=== PATIENT | female | born 1980 | race American Indian/Alaskan Native ===

== ENCOUNTER 2017-10-22 06:06 | Day surgery (SDC) | payer BC ==
--- NOTE | 2017-10-21 22:30 | History and Physical Report ---
History of Present Illness Date of examination: 10/22/17 Chief complaint: Blighted Ovum History of present illness: Pt is a 37 year old female LMP 07/14/17 at 14w2d by LMP presents with ultrasound on 10/16/17 with gesational sac measuring 6w4d with no pole or yolk sac. She desires surgical management. Past History Past Medical History: hematologic disorders (sickle cell trait ) Past Surgical History: section (x 2) [employer] History: herpes Family/Genetic History: hypertension Social history: no significant social history - Obstetrical History : 3 Para: 2 Hx # Term Pregnancies: 2 Number of Pregnancies: 0 Spontaneous Abortions: 0 Induced : 0 Number of Living Children: 2 Medications and Allergies Allergies Allergy/AdvReac Type Severity Reaction Status Date / Time No Known Allergies Allergy Unverified 10/21/17 10:42 Home Medications Medication Instructions Recorded Confirmed Last Taken Type Pnv No.95/Ferrous Fum/Folic AC 1 tab PO DAILY 10/21/17 10/21/17 Unknown History [ Vitamins Tablet] Review of Systems All systems: negative - Physical Exam Breasts: Positive: deferred Cardiovascular: Regular rate Lungs: Positive: Clear to auscultation Abdomen: Positive: soft Extremities: Positive: normal Results All other labs normal. Assessment and Plan A: Blighted ovum P: Proceed with suction dilation ad curettage and other indicated procedures.
[~2017-10-22 06:06] MED LIST: DOXYCYCLINE HYCLATE 100 MG in NACL 0.9% 250ML 250 ML IV SCH; LACTATED RINGERS 1,000 ML IV SCH
[2017-10-22] MEDS ORDERED: NACL BACTERIOSTATIC INFILTRATI ONE (06:31)
--- NOTE | 2017-10-22 06:57 | Anesthesia Consultation ---
Anesthesia Consult and Med Hx Date of service: 10/22/17 - Airway Anesthetic Teeth Evaluation: Good ROM Head & Neck: Adequate Mental/Hyoid Distance: Adequate Mallampati Class: Class II Intubation Access Assessment: Probably Good - Pulmonary Exam CTA: Yes - Cardiac Exam Cardiac Exam: RRR - Pre-Operative Health Status ASA Pre-Surgery Classification: ASA2 Proposed Anesthetic Plan: General - Central Nervous System Hx Psychiatric Problems: No - Hematic Hx Sickle Cell Disease: Yes (Trait only) - Other Systems Hx Cancer: No
--- NOTE | 2017-10-22 06:58 | Anesthesia Day of Surgery ---
Anesthesia Day of Surgery - Day of Surgery Patient Examined: Yes Patient H&P Reviewed: Yes Patient is NPO: Yes
[2017-10-22] MEDS ORDERED: PEPCID PO NR (07:00)
[2017-10-22] MEDS ORDERED: VERSED IV NR (07:00)
[2017-10-22] MEDS ORDERED: DIPRIVAN 10 MG/ML IV ONE (07:03)
[2017-10-22] MEDS ORDERED: DECADRON ONE (07:04)
[2017-10-22] MEDS ORDERED: XYLOCAINE MPF 2% ONE (07:04)
[2017-10-22] MEDS ORDERED: ZOFRAN ONE (07:04)
[2017-10-22] MEDS ORDERED: DILAUDID ONE (07:04)
[2017-10-22] MEDS ORDERED: METHERGINE IM ONE (07:21)
[2017-10-22] MEDS ORDERED: SILVER NITRATE TP ONE (07:21)
[2017-10-22] MEDS ORDERED: TORADOL IV PRN (07:30)
[2017-10-22] MEDS ORDERED: DILAUDID IV PRN (07:30)
[2017-10-22] MEDS ORDERED: ZOFRAN IV PRN (07:30)
[2017-10-22 07:47] LABS: Hematocrit 38.8 % (30.3-42.9); Hemoglobin 13.1 gm/dl (10.1-14.3); Mean Corpuscular HGB Conc 34 % (30-34); Mean Corpuscular Hemoglobin 33 pg (28-32); Mean Corpuscular Volume 96 fl (79-97); Platelet Count 176 K/mm3 (140-440); Red Blood Count 4.03 M/mm3 (3.65-5.03); Red Cell Distribution Width 12.8 % (13.2-15.2)
--- NOTE | 2017-10-22 08:45 | Operative Report ---
Operative Report Operative Report: Date of procedure: October 22, 2017 Preoperative diagnosis: Blighted ovum Postoperative diagnosis: Same Procedure: Suction dilation and curettage Surgeon: Nicky Hampton M.D. Findings: 1) Small anteverted uterus which sounded to 7 cm Anesthesia: General anesthesia with LMA EBL: 200 mL IV fluid: 300 mL Urine output: 80 mL, clear prior to the procedure Drains: None Specimens: Products of conception to pathology Complications: None Medications: Methergine 0.2 mg IM Disposition: Stable to PACU Indication for procedure: Pt is a 37 year old female who presents for surgical management of blighted ovum (6w4d). Operation detail: After the risks, benefits, alternatives, and complications of the procedure were explained to the patient she gave informed consent for the procedure. She was taken to the operating room with her IV noted to be running well and placed in the dorsal supine position. SCDs were noted to be in place and functioning. General anesthesia was induced without difficulty. The patient was placed in the dorsal lithotomy position and prepped and draped in normal sterile fashion. A timeout was performed. The bladder was drained of 80 mL of clear urine with a catheter. A bivalve speculum was placed in the vagina for adequate visualization of the cervix. A single-tooth tenaculum was some anterior lip of the cervix. The uterus was then gently sounded to 7 cm. Carreno dilators were used to dilate the cervix to # 21 dilator, sufficient to accommodate a #7 rigid curet. A suction curettage was then performed with a #7 curette. Sharp curettage was performed until gritty x 4. Methergine 0.2 mg IM was administered. The tenaculum was removed from the cervix and the puncture sites were noted to be hemostatic. At this time all instruments removed from the vagina and the procedure was ended. The patient was replaced into the dorsal supine position and extubated without difficulty. She was subsequently taken to the PACU in stable condition. The patient tolerated the procedure well and all instrument and lap counts were correct 2.
--- NOTE | 2017-10-22 09:01 | Short Stay Summary ---
Short Stay Documentation Date of service: 10/22/17 - History H&P: dictated Social history: no significant social history - Allergies and Medications Current Medications: Allergies No Known Allergies Allergy (Verified 10/21/17 22:26) Home Medications Medication Instructions Recorded Confirmed Last Taken Type Pnv No.95/Ferrous Fum/Folic AC 1 tab PO DAILY 10/21/17 10/22/17 1 Week Ago History [ Vitamins Tablet] ~10/15/17 Ibuprofen [Motrin] 800 mg PO Q8HR PRN #30 tablet 10/22/17 Unknown Rx Active Medications Hydromorphone HCl (Dilaudid) 0.5 mg IV Q10MIN PRN PRN Reason: Pain , Severe (7-10) Stop: 10/22/17 15:00 Doxycycline Hyclate 100 mg/ (Sodium Chloride) 250 mls @ 250 mls/hr IV PREOP COMFORT ; Protocol Stop: 10/22/17 23:59 Lactated Ringer's (Lactated Ringers) 1,000 mls @ 100 mls/hr IV DIRECT COMFORT Last Admin: 10/22/17 07:10 Dose: 100 mls/hr Ketorolac Tromethamine (Toradol) 30 mg IV ONCE PRN PRN Reason: Pain, Moderate (4-6) Stop: 10/22/17 15:30 Midazolam HCl (Versed) 2 mg IV PREOP NR Stop: 10/22/17 23:59 Last Admin: 10/22/17 07:27 Dose: 2 mg Ondansetron HCl (Zofran) 4 mg IV ONCE PRN PRN Reason: Nausea And Vomiting Stop: 10/22/17 15:00 - Physical exam Breasts: deferred - Brief post op/procedure progress note Date of procedure: 10/22/17 Pre-op diagnosis: Blighted Ovum Post-op diagnosis: same Procedure: Suction dilation and curettage Anesthesia: GETA Findings: 1) Small anteverted uterus which sounded to 7 cm Surgeon: SILVER EUGENE Estimated blood loss: other (200 mL) Pathology: list (products of conception) Specimen disposition: to lab Condition: stable - Hospital course Hospital course: Patient underwent suction dilation and curettage was tolerated well. She was observed in the PACU and she met discharge criteria. She'll follow-up in the office in [address] Worrell. - Disposition Condition at discharge: Stable Disposition: DC-01 TO HOME OR SELFCARE - Discharge Diagnoses (1) Blighted ovum Status: Acute Short Stay Discharge Plan Activity: other (Nothing in vagina, no tub baths for 4 weeks ) Weight Bearing Status: Full Weight Bearing Diet: regular Follow up with: SILVER EUGENE MD [Staff Physician] - 11/05/17 (please schedule post op visit ) Prescriptions: Doxycycline Hyclate [Doxycycline Hyclate TAB] 100 mg PO Q12HR #14 tab Ibuprofen [Motrin] 800 mg PO Q8HR PRN #30 tablet PRN Reason: Pain, Moderate (4-6)
--- NOTE | 2017-10-22 09:09 | Post Anesthesia Evaluation ---
- Post Anesthesia Evaluation Patient Participated: Yes Airway Patent: Yes Stable Respiratory Function: Yes Nausea/Vomiting: No Temp > 96.8F: Yes Pain Manageable: Yes Adequeate Hydration: Yes Anesthesia Complications: No
[2017-10-22 09:56] VITALS: BP 103/67
== END 2017-10-22 10:33 | disposition home or self-care (01) ==
LOC: OR 06:06
PROVIDERS: ATTEND Obstetrics & Gynecology
DX: O02.0 Blighted ovum and nonhydatidiform mole (principal); I10 Essential (primary) hypertension; Z98.891 History of uterine scar from previous surgery; Z98.890 Other specified postprocedural states
CPT/HCPCS: 36415; 59820; 85027; 86850; 86900; 86901; 88305; J1100; J1170; J1885; J2210; J2250; J2405; J2704; J7050; J7120